=== PATIENT | male | born 1965 | race Caucasian/White ===

== ENCOUNTER 2018-04-14 08:40 | Observation (INO) ==
--- NOTE | 2018-04-14 09:14 | XRay Report ---
SINGLE VIEW CHEST CLINICAL HISTORY: Left hand numbness. FINDINGS: An AP, portable, upright chest radiograph is obtained. No prior studies are available for c omparison at the time of dictation. The examination is degraded by portable technique and patient rot ation. The cardiomediastinal silhouette is unremarkable. Emphysematous change is suggested. There is no airspace consolidation or large pleural effusion. No pneumothorax is seen. The bony thorax is brittney ssly intact. IMPRESSION: 1. There is no acute cardiopulmonary abnormality. 2. Suspect emphysema. Electronically signed by: Maurizio Steiner M.D. 04/14/2018 9:13 AM
[2018-04-14 09:17] LABS: Basophils # (auto) 0.02 K/uL (0-0.2); Basophils % (auto) 0.3 %; Eosinophils # (auto) 0.23 K/uL (0-0.5); Hematocrit (blood only) 47.3 % (42-52); Hemoglobin 16.4 g/dL (14.0-18.0); Immature Granulocytes # (auto) 0.01 K/uL (0.00-0.02); Immature Granulocytes % (auto) 0.2 %; Lymphocytes # (auto) 1.73 K/uL (1.2-3.4); Mean Corpuscular Hgb Conc 34.7 g/dL (32-36); Mean Corpuscular Volume 96.5 fL (80-100); Mean Platelet Volume 10.9 fL (7.4-10.4); Monocytes # (auto) 0.75 K/uL (0.11-0.59); Neutrophils # (auto) 3.02 K/uL (1.4-6.5); Neutrophils % (auto) 52.5 %; Platelet Count 238 K/uL (130-400); RDW Coefficient of Variation 12.7 % (11.5-14.5); RDW Standard Deviation 44.7 fL (36.4-46.3); White Blood Count 5.76 K/uL (4.8-10.8)
[2018-04-14 09:22] LABS: iSTAT Hemoglobin 16.7 g/dl (14.0-18.0); iSTAT Ionized Calcium 1.21 mmol/l (1.12-1.32)
[2018-04-14] MEDS ORDERED: IOVERSOL 100ml IV PRN (09:26)
[2018-04-14 09:31] LABS: BUN Creatinine Ratio 14.9 (10-20); Blood Urea Nitrogen 16 mg/dl (7-18); Calcium 9.3 mg/dl (8.5-10.1); Carbon Dioxide 27 mmol/L (21-32); Chloride 105 mmol/L (98-107); Creatinine Clr Calc Pharmacy 81.6 ml/min; Est GFR (Non-African American) 78.5; Glucose 109 mg/dl (70-99); Magnesium 2.2 mg/dl (1.8-2.4); Potassium 3.9 mmol/L (3.5-5.1); Sodium 138 mmol/L (136-145)
--- NOTE | 2018-04-14 09:34 | CT Scan Report ---
CT SCAN OF THE BRAIN WITHOUT IV CONTRAST CLINICAL HISTORY: Strokelike symptoms. COMPARISON STUDY: No priors. TECHNIQUE: Unenhanced axial CT scan of the brain is performed from the vertex to the skull base. A d ose lowering technique was utilized adhering to the principles of ALARA. CT DOSE: 670.47 mGy.cm FINDINGS: Brain parenchyma: The brain parenchyma is normal in appearance. There is no hemorrhage, mass effect, or evidence of acute territorial ischemia by CT criteria. Nath-white matter differentiation is preser kori. No extra-axial fluid collection is seen. Ventricles, sulci, cisterns: Normal in configuration. Intracranial vasculature: There is mild atherosclerotic calcification of the cavernous carotid arteri es. Calvarium: Unremarkable. Sinuses and mastoids: Trace mucosal thickening is seen within the right maxillary, sphenoid, ethmoid, and left frontal sinuses. The mastoid air cells are well pneumatized. Orbits: The bony orbits are grossly intact. IMPRESSION: There is no hemorrhage, mass effect, or evidence of acute territorial ischemia by CT radha romero. Electronically signed by: Maurizio Steiner M.D. 04/14/2018 9:32 AM
[2018-04-14 09:36] LABS: Troponin I < 0.015 ng/ml (0-0.045)
--- NOTE | 2018-04-14 09:38 | CT Scan Report ---
CT ANGIOGRAM OF THE BRAIN CLINICAL HISTORY: Strokelike symptoms. COMPARISON STUDY: Unenhanced CT of the brain performed the same day 04/14/2018. TECHNIQUE: Following the IV administration of 94 cc of Optiray 320, CT angiogram of the brain was per formed from the skull base to the vertex. Images are reviewed in the axial, sagittal, and coronal christianne katelin. 3-D MIPS images are created and assessed. IV contrast was administered without complication. A dose lowering technique was utilized adhering to the principles of ALARA. FINDINGS: Brain parenchyma: The brain parenchyma is normal in appearance. There is no hemorrhage, mass effect, or evidence of acute territorial ischemia by CT criteria. There is no evidence of enhancing mass lesi on on the angiogram phase images. No extra-axial fluid collection is seen. Nath-white matter differen tiation is preserved. Ventricles, sulci, and cisterns: Normal in configuration. CT angiogram of the brain: There is mild atherosclerotic calcification of the cavernous carotid arter ies. The internal carotid arteries are widely patent, as are the anterior and middle cerebral arterie s. The vertebrobasilar system and posterior cerebral arteries are widely patent. The vertebral arteri es are codominant. There is no aneurysm, high-grade stenosis, or focal vessel cutoff identified throu ghout the intracranial circulation. Dural sinuses: Clear as visualized. Orbits: The bony orbits are intact. The orbital contents are normal as visualized. Sinuses and mastoids: Mild mucosal thickening is seen within the maxillary antra. Trace mucosal thick ening is seen throughout the remaining paranasal sinuses. The mastoid air cells are well pneumatized. Calvarium: Unremarkable. IMPRESSION: 1. There is no hemorrhage, mass effect, or evidence of acute territorial ischemia by CT criteria on t his angiographic phase examination. 2. Unremarkable CT angiogram of the brain. Electronically signed by: Maurizio Steiner M.D. 04/14/2018 9:37 AM
[2018-04-14] MEDS ORDERED: ASPIRIN CHEW 324 MG PO STA (09:46)
--- NOTE | 2018-04-14 11:23 | History & Physical Report ---
Date of Service April 14, 2018 Assessment & Plan (1) Paresthesias: Pt reports 4 days ago started with left arm tingling & numbness, numbness of tongue and throat that lasted approximately 30-45 minutes. Denies any dysphagia or choking at that time. He reports last night around 11:45 PM started with left arm numbness and tingling which is continued into this morning. Denies any weakness of his left arm or hand. Last night for a couple of minutes noted tingling to lower left leg. Upon ER arrival patient states has less numbness sensation to left arm but still with tingling. In ER afebrile, P: 86, R: 20, BP: 176/110, 97% on RA. No leukocytosis, no significant electrolyte abnormality, negative troponin. EKG NSR, rate 84. CXR: There is no acute cardiopulmonary abnormality. Suspect emphysema. CT HEAD: There is no hemorrhage, mass effect, or evidence of acute territorial ischemia. CTA HEAD: There is mild atherosclerotic calcification of the cavernous carotid arteries. The internal carotid arteries are widely patent, as are the anterior and middle cerebral arteries. The vertebrobasilar system and posterior cerebral arteries are widely patent. The vertebral arteries are codominant. There is no aneurysm, high-grade stenosis, or focal vessel cutoff identified throughout the intracranial circulation. -In ER was given ASA 324mg -Tele to monitor for arrhythmias -EKG in am -trend troponin -tox screen pending -lipids, HA1C in am -TSH pending -MRI -echo with bubble study -PT/OT consult -ASA -neurology consult (2) HTN (hypertension): Hx HTN, last seen by PCP in 2006 and was started on atenolol 50 and chlorthalidone 25 however patient never returned for f/u In ER BP: 176/110, 169/110 -metoprolol 25mg BID -monitor BP (3) Alcohol abuse: Drinks 6 beers a day. Last drink yesterday at 14:00. Denies hx withdrawal , seizures, DT's -gabapentin withdrawal protocol -monitor for alcohol withdrawal -alcohol cessation encouraged (4) Tobacco abuse: -smoking cessation discussed -denies nicotine patch DVT Prophylaxis -SCDs Pt does not follow with PCP for routine care. Pt was seen with Dr Sanders. See addendum History of Present Illness Chief Complaint: Paresthesias Primary Care Provider: NO PCP Pt is 53 y/o M with PMH HTN presented to ER with c/o L arm paresthesias. Patient states 4 days ago started with left arm tingling and numbness and also numbness of his tongue and throat that lasted approximately 30-45 minutes. He states he felt like he had slurred speech however the person he was talking to reported no noted changes in speech. Patient denies any dysphagia or choking at that time. He reports last night around 11:45 PM started with left arm numbness and tingling which is continued into this morning. Denies any weakness of his left arm or hand. Last night for a couple of minutes noted tingling to lower left leg. Upon ER arrival patient states has less numbness sensation to left arm but still with tingling. Pt with history of HTN, last seen by PCP in 2006 at that point time was placed on atenolol 50 and chlorthalidone 25 however patient never returned for follow-up. Has not followed up with PCP. Drinks 6 beers day. Last drink 2pm yesterday. Denies hx withdrawal, seizures, DT's. Denies fever/chills, diaphoresis, N/V/D/C, LEVY, dizziness, syncope, vision changes, neck pain, CP, SOB, orthopnea, palpitations , cough, sore throat, otalgia, rhinorrhea, abdominal pain, extremity weakness, extremity edema, rashes, urinary symptoms. Denies tick bites. Allergies Allergy/AdvReac Type Severity Reaction Status Date / Time No Known Allergies Allergy Unverified 04/14/18 10:18 Home Medications Home Medications Medication Instructions Recorded Confirmed Type white petrolatum-mineral oil 1 applic TOPICAL QID 04/14/18 04/14/18 History [Eucerin] Past Med/Surg History Medical History Alcohol abuse (Chronic) Tobacco abuse (Chronic) HTN (hypertension) (Chronic) Surgical History History of appendectomy (Resolved) History of hernia repair (Resolved) Family History Other CAD (coronary artery disease) Diabetes HLD (hyperlipidemia) HTN (hypertension) Stomach cancer Stroke Social History Current Living Situation: Alone Other Information That Helps Us Care for You: No Feels Safe at Home: Yes Safety Concerns: Feels Safe At This Time Smoking Status: Current every day smoker Tobacco Type: cigarettes Cigarettes per Day: 1ppd x 30 years Do You Dip or Chew Tobacco: No Hx Alcohol Use: Yes Alcohol type: beer Alcohol Intake Frequency: 3 or more drinks per day Alcohol Intake Frequency Comment: 6 beers a day Hx Substance Use: No Beliefs That Will Affect Care: None Preferred Language: Lithuanian Communication Ability: Effective Review of Systems All systems reviewed & are unremarkable except as noted in HPI & below Physical Exam 2 Vital Signs (Past 24 Hours): Last Vital Signs Temp 36.7 C 04/14/18 08:46 Pulse 78 04/14/18 10:30 Resp 13 04/14/18 10:30 BP 167/95 H 04/14/18 10:30 Pulse Ox 97 04/14/18 10:30 Physical Exam: General: no distress, WDWN Head: normocephalic, atraumatic Eyes: PERRL, EOM's intact, conjunctiva non-injected, anicteric ENT: normal inspection external ears, nose, mucous membranes moist Neck: supple, trachea midline, non-tender Lungs: clear, no respiratory distress, no wheezing/rhonchi/rales CV: RRR, no murmur, no pretibial edema Abd: normal BS, soft, non-tender Ext: no cyanosis, no calf tenderness Neuro: A&O x 3, no focal deficits noted, normal affect, bilateral eyebrow raise intact, tongue midline, no pronator drift, bilateral arm and leg strength 5/5, sensation to light touch equal and intact throughout Skin: warm, dry Results & Data Laboratory Results Short CBC 04/14/18 Range/Units 09:05 WBC 5.76 (4.8-10.8) K/uL Hgb 16.4 (14.0-18.0) g/dL Hct 47.3 (42-52) % Plt Count 238 (130-400) K/uL BMP 04/14/18 09:05 Sodium 138 Potassium 3.9 Chloride 105 Carbon Dioxide 27 BUN 16 Creatinine 1.08 Glucose 109 H Calcium 9.3 Cardiac Enzymes 04/14/18 Range/Units 09:05 Troponin I < 0.015 (0-0.045) ng/ml Diagnostic Findings CXR: IMPRESSION: 1. There is no acute cardiopulmonary abnormality. 2. Suspect emphysema. CT HEAD: IMPRESSION: There is no hemorrhage, mass effect, or evidence of acute territorial ischemia by CT criteria. CTA HEAD: IMPRESSION: 1. There is no hemorrhage, mass effect, or evidence of acute territorial ischemia by CT criteria on this angiographic phase examination. 2. Unremarkable CT angiogram of the brain. ECG Rate (beats per minute): 84 Rhythm: normal sinus Supervising Physician Co-Signing Physician Notes Attending addendum The patient was seen and examined in medical floor He was admitted with numbness and tingling involving the left upper mainly hand and the fingers This has been going on for the last 2 days. Denies any other neurological symptoms Noted to have a very high blood pressure of 175/117 in the emergency room with relevant investigations Admitted to [facility] telemetry for possible strokelike symptoms to rule out CVA and hypertension On examination Still has some numbness and tingling involving left hand and fingers Hemodynamically stable Blood pressure is trending down with medication Chest-clear to auscultate bilateral Heart-S1-S2 regular Abdomen-pending BLUEPRINT BLOCKER-alert, awake and oriented x3 Minimally impaired sensation left hand Power seems to be intact Admission labs and imaging studies reviewed Has strokelike symptoms rule out CVA May have carpal tunnel syndrome involving the left upper extremity Has uncontrolled hypertension Agree with assessment and plan as outlined above by Amanda Sanders -
[2018-04-14] MEDS ORDERED: POLYETHYLENE (MIRALAX) 17 GM PACK PO PRN (12:02)
[2018-04-14] MEDS ORDERED: LORazepam 1 MG/2 ML VIAL IV PRN (12:02)
[2018-04-14] MEDS ORDERED: PHARMACIST DISCHARGE MED REC CONSULT PRN (12:02)
[2018-04-14] MEDS ORDERED: ACETAMINOPHEN 325 MG TAB PO PRN (12:02)
[2018-04-14] MEDS ORDERED: GABAPENTIN 1200MG ALCOHOL WITHDRAWAL LOAD PO STA (12:02)
[2018-04-14] MEDS ORDERED: GABAPENTIN 600 MG TAB PO SCH (12:15)
[2018-04-14 13:03] LABS: Troponin I < 0.015 ng/ml (0-0.045)
[2018-04-14 13:13] LABS: Folate (Folic Acid) 10.69 ng/ml (>5.38)
[2018-04-14] MEDS: METOPROLOL TARTRATE 25 MG TAB PO SCH ×2 (13:19→20:35)
[2018-04-14] MEDS: THIAMINE HCL 100 MG TAB PO SCH (13:19)
--- NOTE | 2018-04-14 14:04 | Neurology Consultation ---
Date of Consultation April 14, 2018 Assessment & Plan (1) Left sided numbness: 1. MRI brain - 2 small cortical subacute infarct right parietal convexity 2. TTE -pending read 3. CTA- no signficant stenosis 4. PT/OT speech for discharge needs 5. add aspirin 81 mg daily add plavix 75 mg dual therapy for 1 month and then aspirin 81 mg for a lifetime 6. optimiaze HTN, HLD LDL <70 7. discussed smoking cessation and EtOH consumption discussed 8. withdrawal protocol started along with thiamine 9. will need an outpatient zio or cardionet follow up in 4-6 weeks after discharge Estee Shelton PAC schedule neurology Supervising Physician Co-Signing Physician Notes I have seen and discussed above patient with Dr Mitchell Lerma. Patient was seen and examined. Continues to endorse some mild sensory changes in left upper extremity. No graphesia. No right to left disorientation. Inact to light touch. Motor strength is 5/5. MRI brain reviewed. Right MCA embolic appearing ischemic stroke. Discussed with patient. Multiple risk factors including HTN, smoking, and heavy alcohol use. - Recommend CTA Neck or carotid US. - Recommend dual antiplaltet x21 days then ASA 81 mg daily. - Recommend high intensity statin, Lipitor 40 mg daily - Permissive HTN for 24 hours, then gradual reduction in blood pressures. Goal SBP<140 , DBP<90 mm Hg - Please check HA1c and lipid panel - TTE completed read pending. I would recommend cardiology consultation for JOHN PAUL. - Patient will likely need 30-day event monitor on discharge - Discussed smoking cessation and alcohol use disorder and risk of stroke We will continue to follow. Dr. Randall will resume coverage tomorrow. Please call me with any questions or concerns. History of Present Illness Reason for Consultation: L arm numbness Requesting Physician: Abelardo Jackson MD Attending Physician: Abelardo Jackson MD History of Present Illness Maksim is a 53 year old right handed male with PMH HTN who c/o L arm paresthesias. He states about 4 days ago started with left arm tingling and numbness and also numbness of his tongue and throat that lasted approximately 30 -45 minutes. He states he felt like he had slurred speech however the person he was talking to reported no noted changes in speech. He had left arm numbness and tingling at work last night around 11:45 PM and continued into this morning. He did have some tingling to lower left leg but that resolved. He has a history of HTN, last seen by PCP in 2006 at that point time was placed on atenolol 50 and chlorthalidone 25 however patient never returned for follow-up and is on no medications. He drinks 6 beers day, smokes 1 ppd cigs, minimal caffeine and no other drugs. denies swallowing issues, one sides weakness, bowel or bladder issues, N, V, fever chills night sweats, vision changes. Allergies Allergy/AdvReac Type Severity Reaction Status Date / Time No Known Allergies Allergy Unverified 04/14/18 10:18 Home Medications Home Medications Medication Instructions Recorded Confirmed Type white petrolatum-mineral oil 1 applic TOPICAL QID 04/14/18 04/14/18 History [Eucerin] Patient History Medical History Alcohol abuse (Chronic) Tobacco abuse (Chronic) HTN (hypertension) (Chronic) Surgical History History of appendectomy (Resolved) History of hernia repair (Resolved) Family History Other CAD (coronary artery disease) Diabetes HLD (hyperlipidemia) HTN (hypertension) Stomach cancer Stroke Social History Current Living Situation: Alone Other Information That Helps Us Care for You: No Feels Safe at Home: Yes Safety Concerns: Feels Safe At This Time Smoking Status: Current every day smoker Tobacco Type: cigarettes Cigarettes per Day: 1ppd x 30 years Do You Dip or Chew Tobacco: No Hx Alcohol Use: Yes Alcohol type: beer Alcohol Intake Frequency: 3 or more drinks per day Alcohol Intake Frequency Comment: 6 beers a day Hx Substance Use: No Beliefs That Will Affect Care: None Preferred Language: Bengali Communication Ability: Effective Physical Exam 2 Vital Signs (Past 24 Hours): Last Vital Signs Temp 36.7 C 04/14/18 08:46 Pulse 91 H 04/14/18 11:30 Resp 20 04/14/18 11:30 BP 157/108 H 04/14/18 11:30 Pulse Ox 96 04/14/18 11:30 Physical Exam: Constitutional: appearance nourished, healthy and normal Ears, Nose, Mouth and Throat: mucous membranes moist, no injection and skin normal, eyes normal Cardiovascular: normal S-1 and S-2 and regular rate and rhythm Respiratory: clear to auscultation (CTA) and no rales, ronchi or wheeze Musculoskeletal: no peripheral edema and good distal pulses Skin: no stigmata of neurocutaneous disease noted and normal and intact Eyes: extraocular muscles intact (EOMI) and pupils equal, round and reactive to light (PERRL) NEUROLOGIC EXAMINATION: Mental status: Alert and interactive Oriented [facility], [facility] [place], able to say no ifs ands or buts, able to close eyes, stick out tongue point to ceiling Oriented to person Speech fluent with no evidence of aphasia, slight lisping of words (he states this is his baseline) Cranial Nerves smile eye brow raise symmetric Reflexes: Deep tendon reflexes were symmetrical and graded 2/5. Plantar responses were flexor. Sensory: vibration, light and cool touch intact Coordination: Romberg absent, finger to nose no bi pass, slight clumsy with rapid hand movement Gait/Stance: Posture normal. steady with steps, base, turning, heel and toe walking ( slight problem) and tandem gait. Motor: Negative for pronator drift of out stretched arms with eyes closed. Strength: biceps triceps hand echo vascular technologist 5/5 bilaterally, hip flex 5/5 Results & Data Laboratory Results Abnormal Labs 04/14/18 04/14/18 04/14/18 09:01 09:05 09:05 MPV 10.9 H [place] # (Auto) 0.75 H Glucose 109 H POC Glucose 117 H POC Glucose (other) 04/14/18 09:10 MPV [place] # (Auto) Glucose POC Glucose POC Glucose (other) [address] head-There is no hemorrhage, mass effect, or evidence of acute territorial ischemia by CT criteria. CXR-There is no acute cardiopulmonary abnormality Suspect emphysema. CT neck- There is no hemorrhage, mass effect, or evidence of acute territorial ischemia by CT criteria on this angiographic phase examination. Unremarkable CT angiogram of the brain. MRI brain-. 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 Minimal chronic small vessel change. Remainder the study is negative. No abnormal postcontrast enhancement.
--- NOTE | 2018-04-14 14:50 | XRay Report ---
XR orbits for MRI HISTORY: pre-MRI screening. COMPARISON: None. FINDINGS: There are no radiopaque foreign bodies identified within the orbits. IMPRESSION: No radiopaque foreign bodies identified within the orbits. The above report was generated using voice recognition software. It may contain grammatical, syntax or spelling errors. Electronically signed by: Mike Quiroz M.D. 04/14/2018 2:49 PM
--- NOTE | 2018-04-14 14:52 | Emergency Department Note ---
Entered by Iona Perera acting as a scribe for Ras Obregon MD History of Present Illness General Chief complaint: Neuro Symptoms/Deficit Stated complaint: L ARM NUMBNESS Time Seen by Provider: 04/14/18 08:52 Source: patient Mode of arrival: ambulatory Limitations: no limitations History of Present Illness Provider complaint: arm weakness Onset (ago): hour(s) 9 Location: upper extremity (left arm) Severity: similar to prior episodes Pain Consistency: + other (persistent) Quality: + other (weakness) Associated symptoms: + other (Associated symptom: arm tingling) The patient is a 53 year old male who presents to the Emergency Room with complaints of persistent left arm numbness beginning 9 hours ago. He reports the numbness extends from his elbow to wrist, and is accompanied by tingling. The patient states he had one similar episode of arm numbness 5 days ago, which resolved on its own. He reports at that time his throat and tongue became numb, which did not occur today. The patient states he his his head 7 months ago and had a concussion, and has a persistent bump on his head since that time. Home Medications Home Medications Medication Instructions Recorded Confirmed Type white petrolatum-mineral oil 1 applic TOPICAL QID 04/14/18 04/14/18 History [Eucerin] Allergies Allergy/AdvReac Type Severity Reaction Status Date / Time No Known Allergies Allergy Unverified 04/14/18 10:18 Past Med/Surg History Medical History Alcohol abuse (Chronic) Tobacco abuse (Chronic) HTN (hypertension) (Chronic) Surgical History History of appendectomy (Resolved) History of hernia repair (Resolved) Family History Other CAD (coronary artery disease) Diabetes HLD (hyperlipidemia) HTN (hypertension) Stomach cancer Stroke Social History Current Living Situation: Alone Other Information That Helps Us Care for You: No Feels Safe at Home: Yes Safety Concerns: Feels Safe At This Time Smoking Status: Current every day smoker Tobacco Type: cigarettes Cigarettes per Day: 1ppd x 30 years Do You Dip or Chew Tobacco: No Hx Alcohol Use: Yes Alcohol type: beer Alcohol Intake Frequency: 3 or more drinks per day Alcohol Intake Frequency Comment: 6 beers a day Hx Substance Use: No Beliefs That Will Affect Care: None Preferred Language: Indian Communication Ability: Effective Review of Systems See HPI for pertinent positives & negatives. and A total of 10 systems reviewed and were otherwise negative Physical Exam Vital Signs Vital Signs - 24 hr 04/14/18 08:46 04/14/18 09:04 04/14/18 09:31 Temperature 36.7 C Temperature Source Oral Sepsis Recent Fever Within 48 Hours No Sepsis New/Unexplained Change in Mental Status No Sepsis Action Taken by Nursing No Action Required Pulse Rate 86 83 82 Respiratory Rate 20 16 18 Blood Pressure 176/110 H 175/117 H 169/111 H Blood Pressure Mean 132 136 130 Pulse Oximetry 97 95 97 Oxygen Delivery Method Room Air 04/14/18 10:00 04/14/18 10:30 04/14/18 11:00 Temperature Temperature Source Sepsis Recent Fever Within 48 Hours Sepsis New/Unexplained Change in Mental Status Sepsis Action Taken by Nursing Pulse Rate 82 78 78 Respiratory Rate 18 13 15 Blood Pressure 169/110 H 167/95 H 169/103 H Blood Pressure Mean 129 119 125 Pulse Oximetry 95 97 96 Oxygen Delivery Method Room Air 04/14/18 11:30 Temperature Temperature Source Sepsis Recent Fever Within 48 Hours Sepsis New/Unexplained Change in Mental Status Sepsis Action Taken by Nursing Pulse Rate 91 H Respiratory Rate 20 Blood Pressure 157/108 H Blood Pressure Mean 124 Pulse Oximetry 96 Oxygen Delivery Method GENERAL: Awake, alert, well-appearing, in no distress HENT: Normocephalic, atraumatic. Oropharynx unremarkable. EYES: Normal conjunctiva. Sclera non-icteric. NECK: Supple. No nuchal rigidity. FROM. No masses. RESPIRATORY: Clear to auscultation. No wheezes. No rales. Normal respiratory effort. CARDIAC: Normal rate. Normal rhythm. No murmurs. No rubs. Extremities warm and well perfused. Pulses equal. No JVD. GI: Soft, non-distended. No tenderness to palpation. No rebound or guarding. No masses. RECTAL: Deferred. MUSCULOSKELETAL: Atraumatic. Chest examination reveals no tenderness. The back is symmetrical on inspection without obvious abnormality. There is no CVA tenderness to palpation. No joint edema. LOWER EXTREMITIES: Calves are equal size bilaterally and non-tender. No edema. No discoloration. NEURO: Normal sensorium. No sensory or motor deficits noted. Course 0852: Past medical records reviewed. The patient was evaluated in room C10, and a complete history and physical examination were performed. 1015: Upon reevaluation, the patient is resting. I discussed test results. They verbalized agreement with the treatment plan. 1017: I reviewed the patient's case with Shayla Ng PA-C, [facility] hospitalist working with Dr. Sanders. She will evaluate the patient for further management. Consultations Consultation #1: I reviewed the patient's case with Shayla Ng PA-C, [facility] hospitalist working with Dr. Sanders. She will evaluate the patient for further management. Time: 10:17 Administered Medications Metoprolol Tartrate (Lopressor) 25 mg PO BID LYNN Stop: 05/14/18 12:59 Last Admin: 04/14/18 13:19 Dose: 25 mg Thiamine HCl (Vitamin B-1) 100 mg PO QAM LYNN Stop: 05/14/18 12:59 Last Admin: 04/14/18 13:19 Dose: 100 mg Discontinued Medications Aspirin (Aspirin) 324 mg PO NOW STA Stop: 04/14/18 09:47 Last Admin: 04/14/18 10:03 Dose: 324 mg Gabapentin (Neurontin) 1,200 mg PO TODAY@1215 [facility] Stop: 04/14/18 12:16 Last Admin: 04/14/18 13:19 Dose: 1,200 mg Ioversol (Optiray 320 100ml) 94 ml IV ONCE PRN PRN Reason: Interaction Checking Stop: 04/18/18 09:25 Last Admin: 04/14/18 09:26 Dose: 94 ml Medical Decision Making Differential Diagnosis Differential includes acute coronary syndrome, myocardial infarction, CVA, TIA , anemia, infection, pneumonia, UTI, pyelonephritis, poor nutrition, dehydration , electrolyte disturbance,hypoglycemia. Medical Records Attestation: I reviewed the patient's medical records. Home Medications Current Medication List: was personally reviewed by me Laboratory Data Attestation: I reviewed the patient's lab results. Result diagrams: 04/14/18 09:05 04/14/18 09:05 Lab Results 04/14/18 04/14/18 04/14/18 Range/Units 09:01 09:05 09:05 WBC 5.76 (4.8-10.8) K/uL RBC 4.90 (4.7-6.1) M/uL Hgb 16.4 (14.0-18.0) g/dL POC Hgb (14.0-18.0) g/dl Hct 47.3 (42-52) % POC Hct (42-52) % MCV 96.5 (80-100) fL MCH 33.5 (25-34) pg MCHC 34.7 (32-36) g/dL RDW Std Deviation 44.7 (36.4-46.3) fL RDW Coeff of Romel 12.7 (11.5-14.5) % Plt Count 238 (130-400) K/uL MPV 10.9 H (7.4-10.4) fL Immature Gran % (Auto) 0.2 % Neut % (Auto) 52.5 % Lymph % (Auto) 30.0 % King % (Auto) 13.0 % Eos % (Auto) 4.0 % Baso % (Auto) 0.3 % Immature Gran # (Auto) 0.01 (0.00-0.02) K/uL Neut # (Auto) 3.02 (1.4-6.5) K/uL Lymph # (Auto) 1.73 (1.2-3.4) K/uL King # (Auto) 0.75 H (0.11-0.59) K/uL Eos # (Auto) 0.23 (0-0.5) K/uL Baso # (Auto) 0.02 (0-0.2) K/uL PT 10.0 (9.0-12.0) Seconds INR 1.0 (0.9-1.1) APTT 27.0 (21.0-31.0) Seconds PTT Ratio 1.0 POC Sodium (135-144) mEq/L Sodium (136-145) mmol/L POC Potassium (3.3-5.0) mEq/L Potassium (3.5-5.1) mmol/L POC Chloride (101-112) mEq/L Chloride (98-107) mmol/L Carbon Dioxide (21-32) mmol/L POC Total CO2 (24-31) mEq/l Anion Gap (3-11) POC Anion Gap (16-25) mmol/L POC BUN (7-18) mg/dl BUN (7-18) mg/dl Creatinine (0.6-1.4) mg/dl POC Creatinine (0.6-1.3) mg/dl Est Cr Clr Drug Dosing ml/min Est GFR ( Amer) Est GFR (Non-Af Amer) BUN/Creatinine Ratio (10-20) Glucose (70-99) mg/dl POC Glucose 117 H (70-99) POC Glucose (other) (70-99) mg/dl Calcium (8.5-10.1) mg/dl POC Ioniz Calcium Carisa (1.12-1.32) mmol/l Magnesium (1.8-2.4) mg/dl Troponin I (0-0.045) ng/ml Vitamin B12 (211-911) pg/ml Folate (>5.38) ng/ml TSH (0.300-4.500) uIu/ml Ethyl Alcohol mg/dL (0-3) mg/dl 04/14/18 04/14/18 04/14/18 Range/Units 09:05 09:10 12:16 WBC (4.8-10.8) K/uL RBC (4.7-6.1) M/uL Hgb (14.0-18.0) g/dL POC Hgb 16.7 (14.0-18.0) g/dl Hct (42-52) % POC Hct 49 (42-52) % MCV (80-100) fL MCH (25-34) pg MCHC (32-36) g/dL RDW Std Deviation (36.4-46.3) fL RDW Coeff of Romel (11.5-14.5) % Plt Count (130-400) K/uL MPV (7.4-10.4) fL Immature Gran % (Auto) % Neut % (Auto) % Lymph % (Auto) % King % (Auto) % Eos % (Auto) % Baso % (Auto) % Immature Gran # (Auto) (0.00-0.02) K/uL Neut # (Auto) (1.4-6.5) K/uL Lymph # (Auto) (1.2-3.4) K/uL King # (Auto) (0.11-0.59) K/uL Eos # (Auto) (0-0.5) K/uL Baso # (Auto) (0-0.2) K/uL PT (9.0-12.0) Seconds INR (0.9-1.1) APTT (21.0-31.0) Seconds PTT Ratio POC Sodium 141 (135-144) mEq/L Sodium 138 (136-145) mmol/L POC Potassium 4.0 (3.3-5.0) mEq/L Potassium 3.9 (3.5-5.1) mmol/L POC Chloride 103 (101-112) mEq/L Chloride 105 (98-107) mmol/L Carbon Dioxide 27 (21-32) mmol/L POC Total CO2 27 (24-31) mEq/l Anion Gap 6.0 (3-11) POC Anion Gap 16.0 (16-25) mmol/L POC BUN 17 (7-18) mg/dl BUN 16 (7-18) mg/dl Creatinine 1.08 (0.6-1.4) mg/dl POC Creatinine 1.0 (0.6-1.3) mg/dl Est Cr Clr Drug Dosing 81.6 ml/min Est GFR ( Amer) 91.0 Est GFR (Non-Af Amer) 78.5 BUN/Creatinine Ratio 14.9 (10-20) Glucose 109 H (70-99) mg/dl POC Glucose (70-99) POC Glucose (other) 107 H (70-99) mg/dl Calcium 9.3 (8.5-10.1) mg/dl POC Ioniz Calcium Carisa 1.21 (1.12-1.32) mmol/l Magnesium 2.2 (1.8-2.4) mg/dl Troponin I < 0.015 (0-0.045) ng/ml Vitamin B12 505 (211-911) pg/ml Folate 10.69 (>5.38) ng/ml TSH (0.300-4.500) uIu/ml Ethyl Alcohol mg/dL (0-3) mg/dl 04/14/18 04/14/18 Range/Units 12:16 12:16 WBC (4.8-10.8) K/uL RBC (4.7-6.1) M/uL Hgb (14.0-18.0) g/dL POC Hgb (14.0-18.0) g/dl Hct (42-52) % POC Hct (42-52) % MCV (80-100) fL MCH (25-34) pg MCHC (32-36) g/dL RDW Std Deviation (36.4-46.3) fL RDW Coeff of Romel (11.5-14.5) % Plt Count (130-400) K/uL MPV (7.4-10.4) fL Immature Gran % (Auto) % Neut % (Auto) % Lymph % (Auto) % King % (Auto) % Eos % (Auto) % Baso % (Auto) % Immature Gran # (Auto) (0.00-0.02) K/uL Neut # (Auto) (1.4-6.5) K/uL Lymph # (Auto) (1.2-3.4) K/uL King # (Auto) (0.11-0.59) K/uL Eos # (Auto) (0-0.5) K/uL Baso # (Auto) (0-0.2) K/uL PT (9.0-12.0) Seconds INR (0.9-1.1) APTT (21.0-31.0) Seconds PTT Ratio POC Sodium (135-144) mEq/L Sodium (136-145) mmol/L POC Potassium (3.3-5.0) mEq/L Potassium (3.5-5.1) mmol/L POC Chloride (101-112) mEq/L Chloride (98-107) mmol/L Carbon Dioxide (21-32) mmol/L POC Total CO2 (24-31) mEq/l Anion Gap (3-11) POC Anion Gap (16-25) mmol/L POC BUN (7-18) mg/dl BUN (7-18) mg/dl Creatinine (0.6-1.4) mg/dl POC Creatinine (0.6-1.3) mg/dl Est Cr Clr Drug Dosing ml/min Est GFR ( Amer) Est GFR (Non-Af Amer) BUN/Creatinine Ratio (10-20) Glucose (70-99) mg/dl POC Glucose (70-99) POC Glucose (other) (70-99) mg/dl Calcium (8.5-10.1) mg/dl POC Ioniz Calcium Carisa (1.12-1.32) mmol/l Magnesium (1.8-2.4) mg/dl Troponin I < 0.015 (0-0.045) ng/ml Vitamin B12 (211-911) pg/ml Folate (>5.38) ng/ml TSH 1.600 (0.300-4.500) uIu/ml Ethyl Alcohol mg/dL < 3.0 (0-3) mg/dl Imaging Data Radiologist's Impression: Radiology results as stated below per my review and the radiologist's interpretation: CT ANGIOGRAM OF THE BRAIN CLINICAL HISTORY: Strokelike symptoms. COMPARISON STUDY: Unenhanced CT of the brain performed the same day 04/14/2018. TECHNIQUE: Following the IV administration of 94 cc of Optiray 320, CT angiogram of the brain was performed from the skull base to the vertex. Images are reviewed in the axial, sagittal, and coronal planes. 3-D MIPS images are created and assessed. IV contrast was administered without complication. A dose lowering technique was utilized adhering to the principles of ALARA. FINDINGS: Brain parenchyma: The brain parenchyma is normal in appearance. There is no hemorrhage, mass effect, or evidence of acute territorial ischemia by CT criteria. There is no evidence of enhancing mass lesion on the angiogram phase images. No extra-axial fluid collection is seen. Nath-white matter differentiation is preserved. Ventricles, sulci, and cisterns: Normal in configuration. CT angiogram of the brain: There is mild atherosclerotic calcification of the cavernous carotid arteries. The internal carotid arteries are widely patent, as are the anterior and middle cerebral arteries. The vertebrobasilar system and posterior cerebral arteries are widely patent. The vertebral arteries are codominant. There is no aneurysm, high-grade stenosis, or focal vessel cutoff identified throughout the intracranial circulation. Dural sinuses: Clear as visualized. Orbits: The bony orbits are intact. The orbital contents are normal as visualized. Sinuses and mastoids: Mild mucosal thickening is seen within the maxillary antra. Trace mucosal thickening is seen throughout the remaining paranasal sinuses. The mastoid air cells are well pneumatized. Calvarium: Unremarkable. IMPRESSION: 1. There is no hemorrhage, mass effect, or evidence of acute territorial ischemia by CT criteria on this angiographic phase examination. 2. Unremarkable CT angiogram of the brain. Electronically signed by: Maurizio Steiner M.D. 04/14/2018 9:37 AM SINGLE VIEW CHEST CLINICAL HISTORY: Left hand numbness. FINDINGS: An AP, portable, upright chest radiograph is obtained. No prior studies are available for comparison at the time of dictation. The examination is degraded by portable technique and patient rotation. The cardiomediastinal silhouette is unremarkable. Emphysematous change is suggested. There is no airspace consolidation or large pleural effusion. No pneumothorax is seen. The bony thorax is grossly intact. IMPRESSION: 1. There is no acute cardiopulmonary abnormality. 2. Suspect emphysema. Electronically signed by: Maurizio Steiner M.D. 04/14/2018 9:[address] SCAN OF THE BRAIN WITHOUT IV CONTRAST CLINICAL HISTORY: Strokelike symptoms. COMPARISON STUDY: No priors. TECHNIQUE: Unenhanced axial CT scan of the brain is performed from the vertex to the skull base. A dose lowering technique was utilized adhering to the principles of ALARA. CT DOSE: 670.47 mGy.cm FINDINGS: Brain parenchyma: The brain parenchyma is normal in appearance. There is no hemorrhage, mass effect, or evidence of acute territorial ischemia by CT criteria. Nath-white matter differentiation is preserved. No extra-axial fluid collection is seen. Ventricles, sulci, cisterns: Normal in configuration. Intracranial vasculature: There is mild atherosclerotic calcification of the cavernous carotid arteries. Calvarium: Unremarkable. Sinuses and mastoids: Trace mucosal thickening is seen within the right maxillary, sphenoid, ethmoid, and left frontal sinuses. The mastoid air cells are well pneumatized. Orbits: The bony orbits are grossly intact. IMPRESSION: There is no hemorrhage, mass effect, or evidence of acute territorial ischemia by CT criteria. Electronically signed by: Maurizio Steiner M.D. 04/14/2018 9:32 AM ECG Data Attestation: I personally reviewed and interpreted this ECG as follows: Indication: weakness Rate (beats per minute): 84 Rhythm: normal sinus Findings: no ST depression and no ST elevation Blood Pressure Blood Pressure Findings: Elevated blood pressure Blood Pressure Disposition: further management by hospitalist [facility] Narrative This is a 53-year-old male who presents emergency department complaining of left -sided numbness. The patient has had 2 episodes of this since Wednesday. I will note that the patient has high blood pressure here in the emergency department and does a large amount of smoking. I am concerned that the patient may be experiencing TIAs. He was sent for a CTA of the head and neck which does not show any acute process. I gave the patient the option of continuing a stroke workup as an outpatient however he does not have a primary care physician. Based on this I did discuss the case with the hospitalist service who agreed to admit the patient. Patient was in agreement with the treatment plan. Impression & Plan Left sided numbness, HTN (hypertension) Discharge Plan Visit Data *Final* Discharge Date/Time: 04/14/18 11:36 Chief Complaint: Neuro Symptoms/Deficit Stated Complaint: L ARM NUMBNESS ED Provider: Ras Obregon Discharge Problem: Left sided numbness, HTN (hypertension) Patient Disposition: Admitted As Inpatient Discharge Instructions Interventions: ED Discharge Assessment Last Done: 04/14/18 11:36 The scribe's documentation has been prepared under my direction and personally reviewed by me in its entirety. I confirm that the note above accurately reflects all work, treatment, procedures, and medical decision making performed by me.
[2018-04-14] MEDS ORDERED: GADOBUTROL 65ML VIAL IV PRN (15:32)
--- NOTE | 2018-04-14 15:42 | Magnetic Resonance Report ---
MR brain wo/w con CLINICAL HISTORY: paresthesias neuropathy COMPARISON STUDY: No previous studies for comparison. TECHNIQUE: Utilizing a 1.5 Raven magnet and dedicated coil, multiplanar, multiecho imaging of the br ain was performed pre and postcontrast administration. IV administration of 8.5 mL of Gadavist contr ast was uneventful. FINDINGS: Diffusion-weighted images show 2 small cortical infarct superior right parietal lobe. The r emainder the diffusion images are unremarkable. These are identified in part on the coronal FLAIR eric ges suggesting that these are subacute. No additional foci of acute ischemic change are present. Postcontrast images are considered negative for an enhancing lesion. The ventricular system is midlin e. There is minimal chronic small vessel change. IMPRESSION: 1. 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 2. Minimal chronic small vessel change. 3. Remainder the study is negative. 4. No abnormal postcontrast enhancement. The above report was generated using voice recognition software. It may contain grammatical, syntax or spelling errors. Electronically signed by: Mike Quiroz M.D. 04/14/2018 3:41 PM
[2018-04-14] MEDS ORDERED: CLOPIDOGREL BISULFATE 75 MG TAB PO ONE (16:16)
[2018-04-14] MEDS: GABAPENTIN 600 MG TAB PO SCH (17:36)
[2018-04-14] MEDS ORDERED: METOPROLOL TARTRATE 1 MG/ML VIAL IV PRN (18:22)
[2018-04-15] MEDS: GABAPENTIN 600 MG TAB PO SCH ×3 (00:06→16:18)
[2018-04-15 06:45] LABS: Basophils # (auto) 0.02 K/uL (0-0.2); Basophils % (auto) 0.3 %; Eosinophils # (auto) 0.27 K/uL (0-0.5); Eosinophils % (auto) 4.6 %; Hemoglobin 15.6 g/dL (14.0-18.0); Immature Granulocytes # (auto) 0.01 K/uL (0.00-0.02); Immature Granulocytes % (auto) 0.2 %; Lymphocytes # (auto) 1.78 K/uL (1.2-3.4); Lymphocytes % (auto) 30.4 %; Mean Corpuscular Hgb Conc 34.7 g/dL (32-36); Mean Corpuscular Volume 96.2 fL (80-100); Mean Platelet Volume 11.1 fL (7.4-10.4); Monocytes # (auto) 0.57 K/uL (0.11-0.59); Monocytes % (auto) 9.7 %; Neutrophils % (auto) 54.8 %; Platelet Count 224 K/uL (130-400); RDW Coefficient of Variation 12.6 % (11.5-14.5); RDW Standard Deviation 44.2 fL (36.4-46.3); Red Blood Count 4.68 M/uL (4.7-6.1); White Blood Count 5.85 K/uL (4.8-10.8)
[2018-04-15] MEDS ORDERED: CLOPIDOGREL BISULFATE 75 MG TAB PO ONE (07:00)
[2018-04-15 07:11] LABS: BUN Creatinine Ratio 21.8 (10-20); Calcium 8.8 mg/dl (8.5-10.1); Creatinine Clr Calc Pharmacy 93.9 ml/min; Est GFR (African American) 115.6; Est GFR (Non-African American) 99.7; Potassium 4.1 mmol/L (3.5-5.1)
[2018-04-15 07:57] LABS: Estimated Average Glucose 123 mg/dl
[2018-04-15] MEDS: METOPROLOL TARTRATE 25 MG TAB PO SCH ×2 (08:24→19:24)
[2018-04-15] MEDS: THIAMINE HCL 100 MG TAB PO SCH (08:24)
[2018-04-15] MEDS ORDERED: MULTIVITAMIN TAB PO SCH (09:00)
[2018-04-15] MEDS ORDERED: ASPIRIN 81 MG ECTAB PO SCH (09:00)
[2018-04-15 09:46] LABS: Amphetamines+Metham, Urine Neg (Neg); Barbiturates, Urine Neg (Neg); Benzodiazepine, Urine Neg (Neg); Cocaine, Urine Neg (Neg); MDMA (Ecstacy), Urine Neg (Neg); Methadone, Urine Neg (Neg); Opiate, Urine Neg (Neg); Phencyclidine, Urine Neg (Neg)
[2018-04-15] MEDS ORDERED: NICOTINE 21 MG/24 HR TDSY TD SCH (15:15)
--- NOTE | 2018-04-15 16:39 | Neurology Progress Note ---
Date of Service April 15, 2018 Assessment & Plan (1) Left sided numbness: 1. MRI brain - 2 small cortical subacute infarct right parietal convexity 2. TTE -no ASD 3. CTA- no signficant stenosis 4. PT/OT speech for discharge needs 5. add aspirin 81 mg daily add plavix 75 mg dual therapy for 1 month and then aspirin 81 mg for a lifetime 6. optimiaze HTN, HLD LDL <70 7. discussed smoking cessation and EtOH consumption discussed 8. withdrawal protocol started along with thiamine 9. will need an outpatient cardionet for 1 month and JOHN PAUL as outpatient 10. hypercoag labs ordered will follow up as outpatient 11. no return to work until follow up with neurology 12. needs to set up PCP follow up PT seen and examined, hx, imaging reviewed. Pt has mild dysarthria and flattened left NLF. R parietal infarct, no cardioembolic source found. Rec Zio at outpt r/o intermittent a fib, possible JOHN PAUL as outpt. Risk factor mod including smoking cessation and reduction or discontinuation of alcohol. ANKUSH Randall MD follow up in 1-2 weeks after discharge Estee Shelton PAC schedule neurology Supervising Physician Co-Signing Physician Notes I have seen and discussed above patient with Dr Estee Randall, neurology Subjective Maksim is a 53 year old right handed male with PMH HTN who c/o L arm paresthesias. He states about 4 days ago started with left arm tingling and numbness and also numbness of his tongue and throat that lasted approximately 30 -45 minutes. He states he felt like he had slurred speech however the person he was talking to reported no noted changes in speech. He had left arm numbness and tingling at work last night around 11:45 PM and continued into this morning. He did have some tingling to lower left leg but that resolved. He has a history of HTN, last seen by PCP in 2006 at that point time was placed on atenolol 50 and chlorthalidone 25 however patient never returned for follow-up and is on no medications. He drinks 6 beers day, smokes 1 ppd cigs, minimal caffeine and no other drugs. Maksim is feeling back to his baseline today. He has been up and walking with PT /OT and they are not recommending any out patient services. denies swallowing issues, one sides weakness, bowel or bladder issues, N, V, fever chills night sweats, vision changes. 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, hip flex plantar flex ext 5/5 neuro: finger to nose no bipass no pronator drift Results & Data Laboratory Results Abnormal lab results 04/15/18 04/15/18 04/15/18 Range/Units 05:21 05:21 05:21 RBC 4.68 L (4.7-6.1) M/uL MPV 11.1 H (7.4-10.4) fL BUN 19 H (7-18) mg/dl BUN/Creatinine Ratio 21.8 H (10-20) Hemoglobin A1c 5.9 H (4.5-5.6) % Cholesterol 229 H (0-200) mg/dl U Marijuana (THC) Screen (Neg) 04/15/18 Range/Units 08:30 RBC (4.7-6.1) M/uL MPV (7.4-10.4) fL BUN (7-18) mg/dl BUN/Creatinine Ratio (10-20) Hemoglobin A1c (4.5-5.6) % Cholesterol (0-200) mg/dl U Marijuana (THC) Screen Pos H (Neg) Diagnostic Findings carotid doppler - pending TTE- no ASD, EF 55-60%
[2018-04-15] MEDS ORDERED: ATORVASTATIN 40 MG TAB PO SCH (17:00)
[2018-04-15] MEDS ORDERED: CLOPIDOGREL BISULFATE 75 MG TAB PO SCH (17:00)
--- NOTE | 2018-04-15 18:15 | Ultrasound Report ---
ULTRASOUND OF THE CAROTID ARTERIES CLINICAL HISTORY: Stroke. COMPARISON STUDY: No priors. TECHNIQUE: Real-time, grayscale, and color Doppler sonography of the carotid arteries is performed. I mages are reviewed in the transverse and longitudinal planes. FINDINGS: Blood pressure in the right arm measures 138/109 and blood pressure in the left arm measures 152/100. The carotid arteries are patent bilaterally and demonstrate antegrade flow. There is mild atheroscler otic plaque seen the carotid bulbs, right greater than left. Normal doppler arterial waveforms are se en throughout. Velocity measurements are listed below. Common carotid peak systolic velocity (cm/sec): RIGHT: 105 LEFT: 123 ICA proximal peak systolic velocity (cm/sec): RIGHT: 70 LEFT: 61 ICA mid peak systolic velocity (cm/sec): RIGHT: 90 LEFT: 73 ICA distal peak systolic velocity (cm/sec): RIGHT: 74 LEFT: 83 ICA/CC peak systolic ratio: RIGHT: 0.9 LEFT: 0.7 Antegrade flow was shown in the vertebral arteries. The external carotid arteries are patent. IMPRESSION: 1. There is no sonographic evidence of hemodynamically significant stenosis in the right or left garner tid arterial system. 2. Antegrade flow is shown in the vertebral arteries. Electronically signed by: Maurizio Steiner M.D. 04/15/2018 6:13 PM
--- NOTE | 2018-04-15 19:05 | Hospitalist Progress Note ---
Date of Service April 15, 2018 Assessment & Plan (1) Acute CVA (cerebrovascular accident): Pt reports 4 days ago started with left arm tingling & numbness, numbness of tongue and throat that lasted approximately 30-45 minutes. Denies any dysphagia or choking at that time. He reports last night around 11:45 PM started with left arm numbness and tingling which is continued into this morning. Denies any weakness of his left arm or hand. Last night for a couple of minutes noted tingling to lower left leg. Brain MRI: 1. 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 2. Minimal chronic small vessel change. Carotid Doppler: negative CTA Head: negative Echo: moderate LVH evaluated by Neurologist Dr. Randall/Dr. Lerma recommend ASA 81mg and Plavix 75mg po daily x 1 month, then ASA only indefinitely Lipitor 40mg po daily continue risk factor modification: HTN control, Smoking and Alcohol Cessation- discussed with patient based on distribution, Neurology also considers possible embolic etiology recommend outpatient JOHN PAUL and Cardiac Monitoring, needs referral to Comb Tender hypercoagulable work up also ordered and results are pending- needs to be followed up (2) HTN (hypertension): Hx HTN, last seen by PCP in 2006 and was started on atenolol 50 and chlorthalidone 25 however patient never returned for f/u In ER BP: 176/110, 169/110 - started metoprolol 25mg BID -BP improving continue to monitor closely as outpatient goal systolic BP < 140 (3) Alcohol abuse: Drinks 6 beers a day. Last drink yesterday at 14:00. Denies hx withdrawal , seizures, DT's - placed on gabapentin withdrawal protocol no signs of alcohol withdrawal -alcohol cessation encouraged (4) Tobacco abuse: -smoking cessation discussed -denies nicotine patch (5) Pre-diabetes: A1c 5.9 will need to be followed up closely as outpatient Disposition ff up with PCP in 3-5 days- will establish with French Avitia and call patient for appointment [facility] Randall in [facility]-2 weeks Subjective ff up for acute CVA seen resting in bed, comfortable in good spirits states he feels fine overall left sided facial/tongue/arm numbness/paresthesias have resolved no other new neuro symptoms denies chest pain, headache, dizziness, nausea/vomiting no other symptoms states he is ready and would like to be discharged today Physical Exam 2 Vital Signs (Past 24 Hours): Last Vital Signs Temp 36.5 C 04/15/18 14:43 Pulse 72 04/15/18 16:57 Resp 18 04/15/18 14:43 BP 150/91 H 04/15/18 16:57 Pulse Ox 97 04/15/18 14:43 Physical Exam: General- oriented x 3, not in distress, speaks in sentences with no effort or accessory muscle use Eyes- anicteric Neck- no JVD Lungs- clear breath sounds bilaterally, no rales/wheezes Heart- normal rate, regular rhythm; no murmurs Abdomen- normal bowel sounds, nondistended, soft, nontender Extremities- no pretibial edema, no calf tenderness Neuro- alert, oriented x 3; no gross focal neurologic deficits Skin- warm & dry Results & Data Laboratory Results Laboratory Results - last 24 hr 04/14/18 04/15/18 04/15/18 20:54 05:21 05:21 WBC 5.85 RBC 4.68 L Hgb 15.6 Hct 45.0 MCV 96.2 MCH 33.3 MCHC 34.7 RDW Std Deviation 44.2 RDW Coeff of Romel 12.6 Plt Count 224 MPV 11.1 H Immature Gran % (Auto) 0.2 Neut % (Auto) 54.8 Lymph % (Auto) 30.4 Howard % (Auto) 9.7 Eos % (Auto) 4.6 Baso % (Auto) 0.3 Immature Gran # (Auto) 0.01 Neut # (Auto) 3.20 Lymph # (Auto) 1.78 Howard # (Auto) 0.57 Eos # (Auto) 0.27 Baso # (Auto) 0.02 Sodium 136 Potassium 4.1 Chloride 106 Carbon Dioxide 25 Anion Gap 5.0 BUN 19 H Creatinine 0.86 Est Cr Clr Drug Dosing 93.9 Est GFR ( Amer) 115.6 Est GFR (Non-Af Amer) 99.7 BUN/Creatinine Ratio 21.8 H Glucose 82 Estimat Average Glucose Hemoglobin A1c Calcium 8.8 Phosphorus 3.0 Magnesium 2.0 Troponin I < 0.015 Triglycerides 148 Cholesterol 229 H LDL Cholesterol, Calc 133 VLDL Cholesterol, Calc 30 HDL Cholesterol 66 Cholesterol/HDL Ratio 4 Urine Opiates Screen Ur Methadone, Qual Urine Barbiturates Ur Phencyclidine (PCP) U Amphetamin/Meth Scrn MDMA (Ecstasy) Screen U Benzodiazepines Scrn Ur Cocaine Metabolite U Marijuana (THC) Screen 04/15/18 04/15/18 05:21 08:30 WBC RBC Hgb Hct MCV MCH MCHC RDW Std Deviation RDW Coeff of Romel Plt Count MPV Immature Gran % (Auto) Neut % (Auto) Lymph % (Auto) Howard % (Auto) Eos % (Auto) Baso % (Auto) Immature Gran # (Auto) Neut # (Auto) Lymph # (Auto) Howard # (Auto) Eos # (Auto) Baso # (Auto) Sodium Potassium Chloride Carbon Dioxide Anion Gap BUN Creatinine Est Cr Clr Drug Dosing Est GFR ( Amer) Est GFR (Non-Af Amer) BUN/Creatinine Ratio Glucose Estimat Average Glucose 123 Hemoglobin A1c 5.9 H Calcium Phosphorus Magnesium Troponin I Triglycerides Cholesterol LDL Cholesterol, Calc VLDL Cholesterol, Calc HDL Cholesterol Cholesterol/HDL Ratio Urine Opiates Screen Neg Ur Methadone, Qual Neg Urine Barbiturates Neg Ur Phencyclidine (PCP) Neg U Amphetamin/Meth Scrn Neg MDMA (Ecstasy) Screen Neg U Benzodiazepines Scrn Neg Ur Cocaine Metabolite Neg U Marijuana (THC) Screen Pos H
[2018-04-15] MEDS ORDERED: STROKE PATIENT DISCHARGE STA (19:24)
--- NOTE | 2018-04-15 19:30 | Discharge Summary ---
Date of Service April 15, 2018 Admission HPI Per Admitting Provider Pt is 53 y/o M with PMH HTN presented to ER with c/o L arm paresthesias. Patient states 4 days ago started with left arm tingling and numbness and also numbness of his tongue and throat that lasted approximately 30-45 minutes. He states he felt like he had slurred speech however the person he was talking to reported no noted changes in speech. Patient denies any dysphagia or choking at that time. He reports last night around 11:45 PM started with left arm numbness and tingling which is continued into this morning. Denies any weakness of his left arm or hand. Last night for a couple of minutes noted tingling to lower left leg. Upon ER arrival patient states has less numbness sensation to left arm but still with tingling. Pt with history of HTN, last seen by PCP in 2006 at that point time was placed on atenolol 50 and chlorthalidone 25 however patient never returned for follow-up. Has not followed up with PCP. Drinks 6 beers day. Last drink 2pm yesterday. Denies hx withdrawal, seizures, DT's. Denies fever/chills, diaphoresis, N/V/D/C, LEVY, dizziness, syncope, vision changes, neck pain, CP, SOB, orthopnea, palpitations , cough, sore throat, otalgia, rhinorrhea, abdominal pain, extremity weakness, extremity edema, rashes, urinary symptoms. Denies tick bites. Admission Exam Per Admitting Provider Vital Signs (Past 24 Hours): Last Vital Signs Temp 36.7 C 04/14/18 08:46 Pulse 78 04/14/18 10:30 Resp 13 04/14/18 10:30 BP 167/95 H 04/14/18 10:30 Pulse Ox 97 04/14/18 10:30 Physical Exam: General: no distress, WDWN Head: normocephalic, atraumatic Eyes: PERRL, EOM's intact, conjunctiva non-injected, anicteric ENT: normal inspection external ears, nose, mucous membranes moist Neck: supple, trachea midline, non-tender Lungs: clear, no respiratory distress, no wheezing/rhonchi/rales CV: RRR, no murmur, no pretibial edema Abd: normal BS, soft, non-tender Ext: no cyanosis, no calf tenderness Neuro: A&O x 3, no focal deficits noted, normal affect, bilateral eyebrow raise intact, tongue midline, no pronator drift, bilateral arm and leg strength 5/5, sensation to light touch equal and intact throughout Skin: warm, dry Principal Diagnosis RIGHT PARIETAL CVA Discharge Exam Vital Signs (Past 24 Hours): Last Vital Signs Temp 36.5 C 04/15/18 14:43 Pulse 72 04/15/18 16:57 Resp 18 04/15/18 14:43 BP 150/91 H 04/15/18 16:57 Pulse Ox 97 04/15/18 14:43 Physical Exam: General- oriented x 3, not in distress, speaks in sentences with no effort or accessory muscle use Eyes- anicteric Neck- no JVD Lungs- clear breath sounds bilaterally, no rales/wheezes Heart- normal rate, regular rhythm; no murmurs Abdomen- normal bowel sounds, nondistended, soft, nontender Extremities- no pretibial edema, no calf tenderness Neuro- alert, oriented x 3; no gross focal neurologic deficits Skin- warm & dry Discharge Data Allergies Allergy/AdvReac Type Severity Reaction Status Date / Time No Known Allergies Allergy Unverified 04/14/18 10:18 Consultations 04/14/18 10:17 ED Decision to Admit Stat 04/14/18 12:02 Consult Case Management - Discharge Planning Routine Consult Neurology Routine Ordered Studies 04/14/18 08:59 CT head/brain wo con Stat IMPRESSION: There is no hemorrhage, mass effect, or evidence of acute territorial ischemia by CT criteria. 04/14/18 09:00 CT angio head w con Stat IMPRESSION: 1. There is no hemorrhage, mass effect, or evidence of acute territorial ischemia by CT criteria on this angiographic phase examination. 2. Unremarkable CT angiogram of the brain. 04/14/18 12:02 MR brain wo/w con Routine FINDINGS: Diffusion-weighted images show 2 small cortical infarct superior right parietal lobe. The remainder the diffusion images are unremarkable. These are identified in part on the coronal FLAIR images suggesting that these are subacute. No additional foci of acute ischemic change are present. Postcontrast images are considered negative for an enhancing lesion. The ventricular system is midline. There is minimal chronic small vessel change. IMPRESSION: 1. 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 2. Minimal chronic small vessel change. 3. Remainder the study is negative. 4. No abnormal postcontrast enhancement. 04/15/18 16:50 US carotid doppler BI Routine IMPRESSION: 1. There is no sonographic evidence of hemodynamically significant stenosis in the right or left carotid arterial system. 2. Antegrade flow is shown in the vertebral arteries. Echo: moderate LVH Hospital Course (1) Acute CVA (cerebrovascular accident): Pt reports 4 days ago started with left arm tingling & numbness, numbness of tongue and throat that lasted approximately 30-45 minutes. Denies any dysphagia or choking at that time. He reports last night around 11:45 PM started with left arm numbness and tingling which is continued into this morning. Denies any weakness of his left arm or hand. Last night for a couple of minutes noted tingling to lower left leg. Brain MRI: 1. 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 2. Minimal chronic small vessel change. Carotid Doppler: negative CTA Head: negative Echo: moderate LVH, no ASD evaluated by Neurologist Dr. Randall/Dr. Lerma recommend ASA 81mg and Plavix 75mg po daily x 1 month, then ASA 81mg po daily only indefinitely Lipitor 40mg po daily continue risk factor modification: HTN control, Smoking and Alcohol Cessation- discussed with patient based on distribution, Neurology also considers possible embolic etiology recommend outpatient JOHN PAUL and Cardiac Monitoring, needs referral to Director Of Automation hypercoagulable work up also ordered and results are pending- needs to be followed up Neurologist recommends patient to follow up with them prior to returning to work ff up with Neurologist Dr. Randall/Dr. Lerma in 1 week (2) HTN (hypertension): Hx HTN, last seen by PCP in 2006 and was started on atenolol 50 and chlorthalidone 25 however patient never returned for f/u In ER BP: 176/110, 169/110 - started metoprolol 25mg BID -BP improving continue to monitor closely as outpatient goal systolic BP < 140 ff up with PCP in 3-5 days (3) Alcohol abuse: Drinks 6 beers a day. Last drink yesterday at 14:00. Denies hx withdrawal , seizures, DT's - placed on gabapentin withdrawal protocol no signs of alcohol withdrawal - alcohol cessation encouraged (4) Tobacco abuse: -smoking cessation discussed -denies nicotine patch (5) Pre-diabetes: A1c 5.9 will need to be followed up closely as outpatient Disposition ff up with PCP in 3-5 days- will establish with French Dasilva and call patient for appointment will need ff up [facility] Neurologist Dr. Randall in 1-2 weeks Total Time Total Time Spent Total Time Spent (In Minutes): 45 minutes Discharge Plan Discharge Items Patient Disposition: Home - Self-Care Reason For Visit: PARESTHESIAS Discharge Diagnosis: STROKE Discharge Goals: Diagnostic testing and Therapeutic intervention Activity: As commented below Activity Comment: RESUME ACTIVITY GRADUALLY TOLERATED, NO HEAVY EXERTION Lifting: Wait until after follow-up appointment Exercise/Sports: Wait until after follow-up appointment Driving/Machine Use Comment: NO DRIVING UNTIL RE-EVALUATED BY PRIMARY CARE PHYSICIAN AND NEUROLOGIST Non-emergency contact: Primary Care Provider and Neurologist Call non-emergency contact if: you have any medication questions and you have a fever Follow-up/Referrals: Mitchell Lerma, [Physician] - Diet: Heart Healthy Addtl Provider Instructions: FOLLOW UP WITH PRIMARY CARE PHYSICIAN- FRENCH DASILVA IN 3-5 DAYS. FOLLOW UP WITH [facility] NEUROLOGIST DR. RANDALL/DR. LERMA IN 1 WEEK. THE CLINIC WILL BE CALLING YOU SOON FOR THE APPOINTMENTS. PLEASE REVIEW YOUR NEW MEDICATION LIST AND FOLLOW INSTRUCTIONS CAREFULLY. ALWAYS FOLLOW UP WITH YOUR DOCTORS ADVISED. Who to Call and When: Medical Emergencies: Call 911 immediately if you experience any of the following warning signs and symptoms of Stroke: Sudden numbness or weakness of the face, arm or leg, especially on one side of the body Sudden confusion, trouble speaking or understanding Sudden trouble seeing in one or both eyes Sudden trouble walking, dizziness, loss of balance or coordination Sudden severe headache with no cause Do not delay calling 911 if you experience any warning signs or symptoms of a stroke. Delay in seeking medical attention may affect what treatments can be given to you. Risk Factors for Stroke: You can reduce your chances of stroke by working with your medical provider to adopt a healthy lifestyle. Some specific ways to lower your chance of stroke are: If you are a smoker, now is the time to stop smoking cigarettes If you are diabetic, improve the control of your blood sugars Avoid excessive amounts of alcohol Control high blood pressure Lose weight if you are overweight Be sure to lead an active lifestyle Eat a healthy diet low in salt, cholesterol and fat You should know about other risk factors for stroke that you are unable to control. These include: Age 55 years or older Male gender Certain racial groups: , or / Family History of Stroke, Mini stroke or Heart Attack Sickle Cell Disease It is important for you to keep your follow up appointments with your medical provider. Prescriptions: New atorvastatin 40 mg Tablet 40 mg PO QAM 30 Days Qty: 30 RF: 1 aspirin [Ecotrin Low Strength] 81 mg Tablet,Delayed Release (Dr/Ec) 81 mg PO QAM 30 Days Qty: 30 RF: 1 metoprolol tartrate 25 mg Tablet 25 mg PO BID 30 Days Qty: 60 RF: 1 gabapentin 600 mg Tablet 600 mg PO UD 2 Days Qty: 3 RF: 0 multivitamin [Daily-Wenceslao] Tablet 1 tab PO QAM 30 Days Qty: 30 RF: 2 thiamine HCl (vitamin B1) [Vitamin B-1] 100 mg Tablet 100 mg PO QAM 14 Days Qty: 14 RF: 0 clopidogrel [Plavix] 75 mg tablet 75 mg PO DAILY Qty: 30 RF: 0 Continue white petrolatum-mineral oil [Eucerin] Cream 1 applic TOPICAL QID RF: 0 Stand-Alone Forms: [facility], Work/School Release (Inpt) Discharge Orders: Discharge Order (Routine); Ordered 04/15/18 Ordered By: Abelardo Jackson Admission Data Admit Date/Time: 04/14/18 11:10 Attending Provider: Abelardo Jackson Admit Provider: Sparkle Sanders Primary Care Provider: PCP,NO Other Providers: Mitchell Lerma ; Sparkle Sanders Service: Telemetry
--- NOTE | 2018-04-15 21:26 | Pharmacy Report ---
Pharmacist Stroke Counseling - Date of Service April 15, 2018 - Scope: Pharmacy has been consulted to provide medication discharge counseling for this patient admitted with ischemic stroke as per the Pharmacist Discharge Counseling for Stroke Patients Protocol. - Medications on Discharge: Home Medications Medication Instructions Recorded Confirmed white petrolatum-mineral oil 1 applic TOPICAL QID 04/14/18 04/14/18 [Eucerin] New Rx's Medication Instructions Recorded aspirin [Ecotrin Low Strength] 81 mg PO QAM 30 Days #30 tab 04/15/18 atorvastatin 40 mg PO QAM 30 Days #30 tab 04/15/18 clopidogrel [Plavix] 75 mg PO DAILY #30 tab 04/15/18 gabapentin 600 mg PO UD 2 Days #3 tab 04/15/18 metoprolol tartrate 25 mg PO BID 30 Days #60 tab 04/15/18 multivitamin [Daily-Wenceslao] 1 tab PO QAM 30 Days #30 tab 04/15/18 thiamine HCl (vitamin B1) [Vitamin 100 mg PO QAM 14 Days #14 tab 04/15/18 B-1] - Action: The above medications, specifically ones for stroke treatment/prophylaxis, have been reviewed in detail with the patient and/or patient vendor representatives(s) prior to discharge. This includes indication, common adverse reactions, drug interactions, and medication administration. Medication counseling has been employed using the teach-back method to ensure understanding. - Outcome: The patient and/or patient vendor representatives(s) have demonstrated understanding of the medications. Please note, they are aware that the pharmacist will call them within 72 hours post-discharge to confirm that the appropriate medications are being taken and answer any further medication related questions the patient might have at that time. Contact information Individual to be contacted: Maksim Merle Relationship to patient (if applicable): Self Phone number: [phone] Best time to call: 10:00 AM Additional comments: * Met with patient at bedside prior to discharge. He was not taking any Rx before admission. Provided with pillbox. * Reviewed indications and adverse effects of all medications. Explained importance and benefits of medications to prevent recurrent stroke. * Unsure if patient will resume drinking after discharge, but he says he will "avoid alcohol" at least "few days"... Explained gabapentin given to prevent withdrawal. He should take 600mg q12 x 1 day (04/16), 600mg q24 x 1 day (04/17), then D/C. 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 * He admits to smoking and etOH abuse. He plans to "cut back". Advised to f/u with PCP to discuss pharmacotherapeutic options, counseling, etc. Explained lifestyle modifications along with new Rx's can reduce risk for stroke and CV events in future. * Patient has no prescription coverage. Advised him to get Rx's from [facility] for lowest cost (all Rx's will be between $4-9 per 30-days supply dick). Gave him a coupon from [employer] for gabapentin (cost less than $3). He already has ASA and can purchase vitamins OTC. Thank you for allowing pharmacy to be involved in the care of this patient. Please call [phone] or [phone] with any additional questions
[2018-04-16] MEDS ORDERED: GABAPENTIN 600 MG TAB PO SCH (11:00)
[2018-04-17] MEDS ORDERED: GABAPENTIN 600 MG TAB PO SCH (23:00)
--- NOTE | 2018-04-18 10:16 | Pharmacy Report ---
Pharmacist Post D/C Phone Note - Phone Note: Date of phone call: April 18, 2018. The patient was unable to be reached for a follow-up phone call within the 72 hour time frame. Discharge counseling pharmacist contact information has already been provided to the patient should questions arise. Thank you for allowing us to be involved in the care of this patient. - Home Medications: Home Medications Medication Instructions Recorded Confirmed white petrolatum-mineral oil 1 applic TOPICAL QID 04/14/18 04/14/18 [Eucerin] New Rx's Medication Instructions Recorded aspirin [Ecotrin Low Strength] 81 mg PO QAM 30 Days #30 tab 04/15/18 atorvastatin 40 mg PO QAM 30 Days #30 tab 04/15/18 clopidogrel [Plavix] 75 mg PO DAILY #30 tab 04/15/18 metoprolol tartrate 25 mg PO BID 30 Days #60 tab 04/15/18 multivitamin [Daily-Wenceslao] 1 tab PO QAM 30 Days #30 tab 04/15/18 thiamine HCl (vitamin B1) [Vitamin 100 mg PO QAM 14 Days #14 tab 04/15/18 B-1]
[2018-04-21 14:22] LABS: Anti Cardiolipin Ab IgG <14 GPL (< = 14); Anti Cardiolipin Ab IgM <12 MPL (< = 12); Anti-Thrombin III Activity 111 % activity (80-120); B2 Glycoprotein IgA <9 SAU (<=20); B2 Glycoprotein IgG <9 SGU (<=20); B2 Glycoprotein IgM <9 SMU (<=20); Lupus Anticoagulant Negative (Negative); Protein S Functional(Activity) 123 % (70-150)
== END 2018-04-15 20:15 | disposition home or self-care (01) ==
LOC: 2W 08:40 → ED 08:40 → 2W 11:36